=== PATIENT | male | born 1970 | race African-American/Black ===

== ENCOUNTER 2016-09-24 13:16 | Emergency (ER) | payer SELFPAY ==
[~2016-09-24] VITALS: Ht 172.7 cm; Wt 68.0 kg
--- NOTE | 2016-09-24 13:28 | EKG ---
[facility] [address] [place] [address] Test Date: 2016-09-24 Test Time: 13:23:13 Pat Name: BRENDA CISSE Department: Room: Gender: M [employer] Up Worker: : 1970 Requested By: MELODIE SERRANO Order Number: [id number] Reading MD: Measurements Intervals Maria Stein Rate: 79 P: 68 NC: 168 QRS: 93 QRSD: 96 T: 63 QT: 382 QTc: 439 Interpretive Statements SINUS RHYTHM LEFT ATRIAL ABNORMALITY RIGHTWARD AXIS QRS(T) CONTOUR ABNORMALITY CONSIDER ANTEROSEPTAL MYOCARDIAL DAMAGE CONSIDER INFERIOR MYOCARDIAL DAMAGE RI6.01 Unconfirmed report No previous ECG available for comparison
[2016-09-24] MEDS ORDERED: PHENYTOIN SODIUM EXTENDED 100 MG CAPSULE PO ONE (13:45)
[2016-09-24] MEDS ORDERED: ONDANSETRON ODT 4 MG TAB.RAPDIS. PO ONE (14:15)
[2016-09-24] MEDS ORDERED: ACETAMINOPHEN 500 MG TABLET PO ONE (14:15)
[2016-09-24 15:00] VITALS: BP 123/84
--- NOTE | 2016-09-24 15:12 | ED.ADGEN ---
Past Medical History Past Medical History: Seizure Past Surgical History: Other Additional Past Surgical Histo: KNEE SURGERY Alcohol Use: None Drug Use: None Adult General Chief Complaint Chief Complaint: SEIZURE HPI HPI Patient is a 46 year old -German male with history of seizure disorder presents with witnessed generalized tonic-clonic's prior to ED arrival. Seizure episode happened while at friend's home. Patient reports headache and nausea afterwards. Denies injury or fall. Patient has been noncompliant with his Dilantin medication for the past month. He is prescribed 400 mg daily at bedtime. Patient denies any recent illnesses, changes in sleep schedule or triggering events. Patient is currently homeless and does not have a primary care physician. Review of Systems Review of Systems ROS as per HPI Current Medications Current Medications Current Medications Medications (Trade) Dose Ordered Sig/Niecy Start Time Stop Time Status Last Admin Dose Admin Acetaminophen (Tylenol) 1,000 mg 1X ONCE 09/24/16 14:15 09/24/16 14:16 DC 09/24/16 14:18 1,000 MG Ondansetron HCl (Zofran Odt) 4 mg 1X ONCE 09/24/16 14:15 09/24/16 14:16 DC 09/24/16 14:18 4 MG Phenytoin Sodium (Dilantin) 500 mg 1X ONCE 09/24/16 13:45 09/24/16 13:46 DC 09/24/16 14:18 500 MG Allergies Allergies Allergies Coded Allergies Type Severity Reaction Last Updated Verified No Known Drug Allergies 11/13/14 No Physical Exam Physical Exam Constitutional: Well developed, well nourished, no acute distress, non-toxic appearance. HENT: Normocephalic, atraumatic, bilateral external ears normal, oropharynx moist, no oral exudates, nose normal. Eyes: PERRLA, EOMI, conjunctiva normal. Neck: Normal range of motion, no tenderness. Cardiovascular:Heart rate regular rhythm, no murmur. Lungs & Thorax: Bilateral breath sounds clear to auscultation [] Abdomen: Bowel sounds normal, soft, no tenderness, no masses, no pulsatile masses. [] Skin: Warm, dry, no erythema, no rash. Back: No tenderness, no CVA tenderness. [] Extremities: No tenderness, no cyanosis, no clubbing, ROM intact, no edema. [] Neurologic: Alert and oriented X 3, normal motor function, normal sensory function, no focal deficits noted. [] Psychologic: Affect normal, judgement normal, mood normal. [] Current Patient Data Vital Signs Vital Signs Date Time Temp Pulse Resp B/P (MAP) Pulse Ox O2 Delivery O2 Flow Rate FiO2 09/24/16 15:00 70 19 123/84 (97) 97 09/24/16 13:30 Room Air 09/24/16 13:20 98.3 98.3 EKG EKG [] Radiology/Procedures Radiology/Procedures [] Course & Med Decision Making Course & Med Decision Making Pertinent Labs and Imaging studies reviewed. (See chart for details) [Seizure secondary to medication noncompliance. Dilantin medication given the ED with 1 month referral. Recommend follow up with local PCP. Return precautions reviewed.] Dragon Disclaimer Dragon Disclaimer This electronic medical record was generated, in whole or in part, using a voice recognition dictation system. MELODIE SERRANO DO Sep 24, 2016 15:12
== END 2016-09-24 15:05 | disposition home or self-care (01) ==
LOC: ER 13:16
DX: G40.909 Epilepsy, unspecified, not intractable, without status epilepticus (principal)
CPT/HCPCS: 82962; 93005; 99284; Q0162